=== PATIENT | male | born 1960 | race Caucasian/White ===

== ENCOUNTER 2018-03-01 10:34 | Inpatient (IN) | payer BC ==
[~2018-03-01] VITALS: Ht 188 cm; Wt 143.7 kg
[2018-03-01 17:21] VITALS: BP 122/83
[2018-03-01] MEDS ORDERED: LABETALOL 5MG/ML, 20ML IVPush PRN (17:30)
[2018-03-01] MEDS ORDERED: POLYETHYLENE GLYCOL 17 GM PACKET PO PRN (17:30)
[2018-03-01] MEDS ORDERED: DOCUSATE 100 MG CAPSULE PO PRN (17:30)
[2018-03-01] MEDS ORDERED: ONDANSETRON ODT 4 MG PO PRN (17:30)
[2018-03-01] MEDS ORDERED: ACETAMINOPHEN 325 MG TABLET PO PRN (17:30)
[2018-03-01] MEDS ORDERED: BISACODYL 10 MG SUPP PR PRN (17:30)
[2018-03-01] MEDS ORDERED: ONDANSETRON 2MG/ML, 2ML IVPush PRN (17:30)
[2018-03-01] MEDS ORDERED: hydrALAzine 20 MG/ML, 1ML IVPush PRN (17:30)
[2018-03-01] MEDS ORDERED: ATOM100C PO (17:50)
[2018-03-01] MEDS ORDERED: VITA1CAP PO (17:50)
[2018-03-01] MEDS ORDERED: VENL150C6 PO (17:50)
[2018-03-01] MEDS ORDERED: BUPR300T4 PO (17:50)
[2018-03-01] MEDS ORDERED: VENL225T PO (17:50)
[2018-03-01] MEDS ORDERED: PROP40TA PO (17:50)
[2018-03-01] MEDS ORDERED: COCO1000 PO (17:50)
[2018-03-01] MEDS ORDERED: METH750T2 PO (17:50)
[2018-03-01] MEDS ORDERED: KRIL1CAP6 PO (17:50)
[2018-03-01] MEDS ORDERED: PALI9TAB3 PO (17:50)
[2018-03-01] MEDS ORDERED: ALPR1TAB6 PO (17:50)
[2018-03-01] MEDS ORDERED: BOSW1POW PO (17:51)
[2018-03-01] MEDS ORDERED: VANCOMYCIN PER PHARMACY MC PRN (18:00)
[2018-03-01] MEDS ORDERED: PLEASE ENTER HEIGHT AND WEIGHT MC SCH (18:00)
[2018-03-01] MEDS ORDERED: PHARMACOKINETIC CONSULTATION MC ONE (18:30)
[2018-03-01] MEDS ORDERED: PHARMACOKINETIC MONITORING MC PRN (18:30)
[2018-03-01] MEDS ORDERED: PALI6TAB5 PO (19:09)
[2018-03-01 19:56] VITALS: BP 132/82
[2018-03-01] MEDS: VANCOMYCIN 2,000 MG in SODIUM CHLORIDE 0.9% 500 ML IV SCH (20:32)
[2018-03-02 01:34] VITALS: BP 120/79
[2018-03-02 06:07] LABS: BASOPHILS # (AUTO) 0.05 x10^3/uL (0-0.1); BASOPHILS % (AUTO) 1 % (0-1); EOSINOPHILS # (AUTO) 0.18 x10^3/uL (0-0.4); EOSINOPHILS % (AUTO) 3 % (1-7); LYMPHOCYTES # (AUTO) 2.16 x10^3/uL (1-3.4); LYMPHOCYTES % (AUTO) 34 % (22-44); MD NO; MEAN CORPUSCULAR HEMOGLOBIN 29.5 pg (27.5-34.5); MEAN CORPUSCULAR HGB CONC 34.4 g/dL (33.2-36.2); MEAN CORPUSCULAR VOLUME 85.9 fL (81-97); MEAN PLATELET VOLUME 7.3 fL (7.4-10.4); MONOCYTES # (AUTO) 0.43 x10^3/uL (0.2-0.8); MONOCYTES % (AUTO) 7 % (2-9); NEUTROPHILS # (AUTO) 3.48 x10^3/uL (1.8-6.8); NEUTROPHILS % (AUTO) 55 % (42-75); PLATELET COUNT 287 x10^3/uL (130-400); RED BLOOD COUNT 4.11 x10^6/uL (4.38-5.82); RED CELL DISTRIBUTION WIDTH 14.5 % (9.4-14.8)
[2018-03-02 06:08] LABS: HCT (SEDRATE) 35.3 % (39.2-51.8)
[2018-03-02 06:24] LABS: CHLORIDE 107 mmol/L (98-107)
[2018-03-02 06:35] LABS: ALANINE AMINOTRANSFERASE 20 U/L (12-78); ALBUMIN 3.2 g/dL (3.4-5.0); ALKALINE PHOSPHATASE 127 U/L (45-117); ANION GAP 9 mmol/L (5-15); BILIRUBIN,TOTAL 0.2 mg/dL (0.2-1.0); C-REACTIVE PROTEIN, QUANT 0.42 mg/dL (0.02-0.49); CALCIUM 8.2 mg/dL (8.5-10.1); CREATININE 1.63 mg/dL (0.7-1.3); TOTAL PROTEIN 6.9 g/dL (6.4-8.2)
[2018-03-02] MEDS ORDERED: METHOCARBAMOL 750 MG TABLET PO PRN (07:30)
[2018-03-02 07:50] VITALS: BP 134/84
[2018-03-02] MEDS: VANCOMYCIN 2,000 MG in SODIUM CHLORIDE 0.9% 500 ML IV SCH ×2 (08:44→20:54)
[2018-03-02 08:49] LABS: HEMOGLOBIN A1C 5.7 % (4.2-6.3)
[2018-03-02] MEDS: PALIPERIDONE 6 MG TAB.ER.24 PO SCH (08:50)
[2018-03-02 15:48] VITALS: BP 134/85
[2018-03-02] MEDS ORDERED: FENTANYL PF 100 MCG/2ML ONE ×2 (17:04→18:19)
[2018-03-02] MEDS ORDERED: MIDAZOLAM 1 MG/ML, 2ML ONE (17:04)
[2018-03-02] MEDS ORDERED: DEXAMETHASONE 4 MG/ML, 5ML ONE (17:18)
[2018-03-02] MEDS ORDERED: PROPOFOL 10 MG/ML, 20ML ONE (17:18)
[2018-03-02] MEDS ORDERED: SUCCINYLCHOLINE 20 MG/ML, 10ML ONE (17:18)
[2018-03-02] MEDS ORDERED: OXYcodone 5 MG/5 ML ORAL.SOL UDC PO PRN (17:30)
[2018-03-02] MEDS ORDERED: MORPHINE SULFATE 4 MG/ML, 1ML IVPush PRN (17:30)
[2018-03-02] MEDS ORDERED: ALBUTEROL SULFATE 2.5 MG/3 ML NPPB PRN (17:30)
[2018-03-02] MEDS ORDERED: ONDANSETRON 2MG/ML, 2ML IV PRN (17:30)
[2018-03-02] MEDS ORDERED: PROMETHAZINE 25 MG/ML, 1ML IV PRN (17:30)
[2018-03-02] MEDS ORDERED: ONDANSETRON ODT 8 MG PO PRN (17:30)
[2018-03-02] MEDS ORDERED: HYDROmorphone 1 MG/ML, 1ML IV PRN (17:30)
[2018-03-02] MEDS ORDERED: MIDAZOLAM 1 MG/ML, 2ML IV PRN (17:30)
[2018-03-02] MEDS ORDERED: LORazepam 2 MG/ML, 1ML IVPush PRN (17:30)
[2018-03-02] MEDS ORDERED: MEPERIDINE/PF 25MG/0.5ML IVPush PRN (17:30)
[2018-03-02] MEDS ORDERED: hydrALAzine 20 MG/ML, 1ML IV PRN (17:30)
[2018-03-02] MEDS ORDERED: PROMETHAZINE 12.5 MG SUPP PR PRN (17:30)
[2018-03-02] MEDS ORDERED: LABETALOL 5MG/ML, 20ML IV PRN (17:30)
[2018-03-02] MEDS ORDERED: EPHEDRINE 50 MG/ML, 1ML IVPush PRN (17:30)
[2018-03-02] MEDS ORDERED: OXYcodone 5 MG/5 ML ORAL.SOL UDC ONE (18:19)
[2018-03-02] MEDS: FENTANYL PF 100 MCG/2ML IV PRN ×2 (18:25→18:36)
[2018-03-02] MEDS ORDERED: MORPHINE SULFATE 4 MG/ML, 1ML ONE (18:50)
[2018-03-02 19:44] VITALS: BP 135/90
[2018-03-02] MEDS ORDERED: PALIPERIDONE PO SCH (21:00)
[2018-03-02] MEDS: PALIPERIDONE 3 MG TAB.ER.24 PO SCH (22:00)
[2018-03-03] MEDS: HYDROcodone/APAP 5/325 TABLET PO PRN ×3 (02:01→16:36)
[2018-03-03 02:31] VITALS: BP 119/78
[2018-03-03] MEDS: VANCOMYCIN 2,000 MG in SODIUM CHLORIDE 0.9% 500 ML IV SCH (08:36)
[2018-03-03 08:42] VITALS: BP 121/74
[2018-03-03] MEDS: PALIPERIDONE 6 MG TAB.ER.24 PO SCH (08:47)
[2018-03-03] MEDS: HEPARIN 5,000 UNITS/ML, 1ML SQ SCH ×2 (11:02→19:14)
[2018-03-03] MEDS ORDERED: VENLAFAXINE MC SCH (13:30)
[2018-03-03 14:41] VITALS: BP 126/75
[2018-03-03 20:03] VITALS: BP 113/69
[2018-03-03] MEDS: PALIPERIDONE 3 MG TAB.ER.24 PO SCH (20:52)
[2018-03-04 02:00] VITALS: BP 135/82
[2018-03-04] MEDS: HEPARIN 5,000 UNITS/ML, 1ML SQ SCH ×3 (03:18→19:45)
[2018-03-04 05:16] LABS: BASOPHILS # (AUTO) 0.05 x10^3/uL (0-0.1); BASOPHILS % (AUTO) 1 % (0-1); EOSINOPHILS # (AUTO) 0.18 x10^3/uL (0-0.4); EOSINOPHILS % (AUTO) 2 % (1-7); LYMPHOCYTES # (AUTO) 2.79 x10^3/uL (1-3.4); LYMPHOCYTES % (AUTO) 37 % (22-44); MD NO; MEAN CORPUSCULAR HEMOGLOBIN 29.2 pg (27.5-34.5); MEAN CORPUSCULAR HGB CONC 33.9 g/dL (33.2-36.2); MEAN PLATELET VOLUME 7.1 fL (7.4-10.4); MONOCYTES % (AUTO) 7 % (2-9); NEUTROPHILS # (AUTO) 3.95 x10^3/uL (1.8-6.8); NEUTROPHILS % (AUTO) 53 % (42-75); PLATELET COUNT 314 x10^3/uL (130-400); RED BLOOD COUNT 4.12 x10^6/uL (4.38-5.82)
[2018-03-04 05:25] LABS: ANION GAP 5 mmol/L (5-15); CALCIUM 8.3 mg/dL (8.5-10.1); CHLORIDE 108 mmol/L (98-107)
[2018-03-04 05:28] LABS: VANCOMYCIN,RANDOM 18.6 mcg/mL
[2018-03-04 08:22] VITALS: BP 126/78
[2018-03-04] MEDS: HYDROcodone/APAP 5/325 TABLET PO PRN ×3 (09:12→21:04)
[2018-03-04] MEDS: VENLAFAXINE 75 MG CAP ER PO SCH ×2 (09:12)
[2018-03-04] MEDS: PALIPERIDONE 6 MG TAB.ER.24 PO SCH (09:12)
[2018-03-04] MEDS: BUPROPION SR 150 MG TABLET PO SCH (09:13)
[2018-03-04] MEDS ORDERED: VANCOMYCIN 2,000 MG in SODIUM CHLORIDE 0.9% 500 ML IV SCH (11:30)
[2018-03-04] MEDS: VANCOMYCIN 2,000 MG in SODIUM CHLORIDE 0.9% 500 ML IV SCH (12:35)
[2018-03-04 13:37] VITALS: BP 105/65
[2018-03-04 20:50] VITALS: BP 127/80
[2018-03-04] MEDS: PALIPERIDONE 3 MG TAB.ER.24 PO SCH (21:04)
[2018-03-05 02:39] VITALS: BP 129/77
[2018-03-05 02:40] VITALS: BP 129/77
[2018-03-05] MEDS: HEPARIN 5,000 UNITS/ML, 1ML SQ SCH ×2 (03:40→12:21)
[2018-03-05 05:23] LABS: BASOPHILS # (AUTO) 0.06 x10^3/uL (0-0.1); BASOPHILS % (AUTO) 1 % (0-1); EOSINOPHILS # (AUTO) 0.32 x10^3/uL (0-0.4); EOSINOPHILS % (AUTO) 5 % (1-7); LYMPHOCYTES # (AUTO) 2.43 x10^3/uL (1-3.4); LYMPHOCYTES % (AUTO) 35 % (22-44); MD NO; MEAN CORPUSCULAR HEMOGLOBIN 29.3 pg (27.5-34.5); MEAN CORPUSCULAR HGB CONC 33.8 g/dL (33.2-36.2); MEAN CORPUSCULAR VOLUME 86.7 fL (81-97); MEAN PLATELET VOLUME 7.3 fL (7.4-10.4); MONOCYTES # (AUTO) 0.53 x10^3/uL (0.2-0.8); MONOCYTES % (AUTO) 8 % (2-9); NEUTROPHILS # (AUTO) 3.56 x10^3/uL (1.8-6.8); NEUTROPHILS % (AUTO) 52 % (42-75); PLATELET COUNT 292 x10^3/uL (130-400); RED BLOOD COUNT 4.19 x10^6/uL (4.38-5.82); RED CELL DISTRIBUTION WIDTH 14.4 % (9.4-14.8)
[2018-03-05 05:33] LABS: ANION GAP 7 mmol/L (5-15); CALCIUM 8.3 mg/dL (8.5-10.1); CHLORIDE 106 mmol/L (98-107); CREATININE 1.57 mg/dL (0.7-1.3)
[2018-03-05] MEDS: HYDROcodone/APAP 5/325 TABLET PO PRN ×2 (06:49→16:24)
[2018-03-05 06:59] VITALS: BP 121/83
[2018-03-05] MEDS: BUPROPION SR 150 MG TABLET PO SCH (08:50)
[2018-03-05] MEDS: VENLAFAXINE 75 MG CAP ER PO SCH ×2 (08:50)
[2018-03-05] MEDS: PALIPERIDONE 6 MG TAB.ER.24 PO SCH (08:50)
[2018-03-05] MEDS: VANCOMYCIN 2,000 MG in SODIUM CHLORIDE 0.9% 500 ML IV SCH (12:21)
[2018-03-05 13:25] VITALS: BP 104/68
[2018-03-05] MEDS ORDERED: DOXY100T PO (15:22)
[2018-03-05] MEDS ORDERED: ENOX40SY4 SQ (15:22)
[2018-03-05] MEDS ORDERED: GABA-826 PO (16:17)
[2018-03-05] MEDS ORDERED: GABAPENTIN 100 MG CAPSULE PO SCH (21:00)
== END 2018-03-05 18:15 | disposition home or self-care (01) | DRG 504 ==
LOC: 4NOR 16:17
PROVIDERS: ADMIT Internal Medicine; ATTEND Internal Medicine
PROC: 0Y6P0Z3 Detachment at Right 1st Toe, Low, Open Approach (ICD-10-PCS; principal; 2018-03-02 17:00)
DX: M86.171 Other acute osteomyelitis, right ankle and foot (principal); Z68.41 Body mass index [BMI] 40.0-44.9, adult; F32.9 Major depressive disorder, single episode, unspecified; F41.9 Anxiety disorder, unspecified; K21.9 Gastro-esophageal reflux disease without esophagitis; E78.5 Hyperlipidemia, unspecified; Z86.711 Personal history of pulmonary embolism; N18.9 Chronic kidney disease, unspecified; E78.00 Pure hypercholesterolemia, unspecified; Z96.653 Presence of artificial knee joint, bilateral; J44.9 Chronic obstructive pulmonary disease, unspecified; L97.519 Non-pressure chronic ulcer of other part of right foot with unspecified severity; E66.9 Obesity, unspecified; Z83.3 Family history of diabetes mellitus; Z87.891 Personal history of nicotine dependence; Z98.84 Bariatric surgery status; Z82.49 Family history of ischemic heart disease and other diseases of the circulatory system
CPT/HCPCS: 36415; 80048; 80053; 80202; 83036; 85025; 85651; 86140; 87040; 87070; 87075; 87077; 87176; 87186; 87205; 93005; G0378; J1100; J1644; J2250; J2704; J3010; J3370; J0330; J7040

== ENCOUNTER → 2018-11-01 | Outpatient (CLI) | payer BC, OTHER ==
[~2018-11-01] MED LIST: ALPR1TAB6 PO; ATOM100C PO; BOSW1POW PO; BUPR300T4 PO; COCO1000 PO; DOXY100T PO; ENOX40SY4 SQ; GABA-826 PO; KRIL1CAP6 PO; METH750T2 PO; PALI6TAB5 PO; PALI9TAB3 PO; PROP40TA PO; REGADENOSON 0.4 MG/5 ML SYRINGE ONE; VENL150C6 PO; VENL225T PO; VITA1CAP PO
== END | disposition home or self-care (01) ==
LOC: RAD 10-31 11:36
PROVIDERS: ATTEND Internal Medicine Cardiovascular Disease
DX: I11.9 Hypertensive heart disease without heart failure (principal); K21.9 Gastro-esophageal reflux disease without esophagitis; E78.5 Hyperlipidemia, unspecified; J44.9 Chronic obstructive pulmonary disease, unspecified; Z86.711 Personal history of pulmonary embolism; Z87.891 Personal history of nicotine dependence
CPT/HCPCS: 78452; 93017; 93306; A9502; J2785

== ENCOUNTER → 2020-10-28 | Outpatient (CLI) | payer OTHER ==
[~2020-10-28] MED LIST changes: +ALPR-585 PO; -ALPR1TAB6 PO; -BUPR300T4 PO; +BUPR300T94 PO; +METH-640 PO; -METH750T2 PO; -REGADENOSON 0.4 MG/5 ML SYRINGE ONE
[2020-10-28 11:26] LABS: ALBUMIN 4.2 g/dL (3.4-5.0)
[2020-10-28 11:33] LABS: BILIRUBIN, DIRECT 0.2 mg/dL (0.1-0.2); BILIRUBIN,INDIRECT 0.5 mg/dL (0.0-2.0); BILIRUBIN,TOTAL 0.7 mg/dL (0.2-1.0); CHOL/HDL RATIO 1.6; LDL/HDL RATIO 0.1 (0.5-3.0); TOTAL PROTEIN 8.2 g/dL (6.4-8.2)
== END | disposition home or self-care (01) ==
LOC: LAB 10:54
PROVIDERS: ATTEND Internal Medicine Cardiovascular Disease
DX: E78.5 Hyperlipidemia, unspecified (principal); E87.6 Hypokalemia; G47.33 Obstructive sleep apnea (adult) (pediatric); I10 Essential (primary) hypertension; I26.99 Other pulmonary embolism without acute cor pulmonale; I42.9 Cardiomyopathy, unspecified; R06.00 Dyspnea, unspecified; R06.02 Shortness of breath; F17.211 Nicotine dependence, cigarettes, in remission; F32.9 Major depressive disorder, single episode, unspecified
CPT/HCPCS: 36415; 80061; 80076